=== PATIENT | male | born 1980 | race Caucasian/White ===

== ENCOUNTER 2016-09-27 06:10 | Emergency (ER) | payer OTHER ==
[~2016-09-27] VITALS: Ht 198.1 cm; Wt 145.0 kg
[2016-09-27 06:14] VITALS: BP 126/78; PULSE 63; RESP 18; TEMP 98.5; O2SAT 99
[2016-09-27] MEDS ORDERED: SODIUM CHLOR 0.9% 1000 ML INJ 1,000 ML IV ONE (06:30)
[2016-09-27] MEDS ORDERED: ceFAZolin 2 GM PREMIX 50 ML IV ONE (06:30)
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
[2016-09-27 06:57] LABS: BASOPHIL % 0.6 % (0.0-2.0); EOSINOPHIL # 0.1 TH/MM3 (0-0.4); HEMATOCRIT 43.7 % (39.0-51.0); HEMO FLAGS DIFF FINAL; LYMPH % 20.3 % (9.0-44.0); LYMPHOCYTE # 1.2 TH/MM3 (1.0-4.8); MEAN CELL VOLUME 86.2 FL (80.0-100.0); MEAN CORPUSCULAR HEMOGLOBIN 29.3 PG (27.0-34.0); MONO % 7.5 % (0.0-8.0); NEUT % 69.6 % (16.0-70.0); PLATELET COUNT 174 TH/MM3 (150-450); RED BLOOD COUNT 5.08 MIL/MM3 (4.50-5.90); RED CELL DISTRIBUTION WIDTH 13.7 % (11.6-17.2); WHITE BLOOD COUNT 5.8 TH/MM3 (4.0-11.0)
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
[2016-09-27 07:23] LABS: ALT (GPT) 31 U/L (12-78)
[2016-09-27 07:25] LABS: ALKALINE PHOSPHATASE 63 U/L (45-117); TOTAL BILIRUBIN ADULT 0.5 MG/DL (0.2-1.0)
[2016-09-27 07:28] LABS: ANION GAP 7 MEQ/L (5-15); AST (GOT) 33 U/L (15-37); BICARBONATE 24.3 MEQ/L (21.0-32.0); BLOOD UREA NITROGEN 26 MG/DL (7-18); CHLORIDE 107 MEQ/L (98-107); GLOMERULAR FILTRATION RATE 74 ML/MIN (>89); POTASSIUM 4.8 MEQ/L (3.5-5.1); SODIUM (NA) 138 MEQ/L (136-145)
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
[2016-09-27] MEDS ORDERED: LIDOCAINE HCL 5% PATCH T-DERMAL ONE (09:00)
[2016-09-27] MEDS ORDERED: IBUPROFEN 600 MG TAB PO ONE (09:00)
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
[2016-09-27] MEDS ORDERED: IOHEXOL 350 MG/ML 10 ML VIAL (for RAD DIAG) IV ONE (11:43)
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
[2016-09-27] MEDS ORDERED: ZITHTAB PO (12:32)
[2016-09-27 12:53] VITALS: RESP 15
== END 2016-09-27 13:15 | disposition home or self-care (01) ==
LOC: NEPC 06:10
DX: S22.42XA Multiple fractures of ribs, left side, initial encounter for closed fracture (principal); R10.12 Left upper quadrant pain; R51 Headache; S00.81XA Abrasion of other part of head, initial encounter; V43.52XA Car driver injured in collision with other type car in traffic accident, initial encounter; Y93.89 Activity, other specified; Y92.410 Unspecified street and highway as the place of occurrence of the external cause; M79.642 Pain in left hand
CPT/HCPCS: 70450; 70486; 71010; 71100; 72125; 72170; 73120; 74177; 80053; 85025; 85610; 96365; 99285; J0690; J7030; Q9967